=== PATIENT | male | born 1945 | race Caucasian/White ===

== ENCOUNTER 2016-06-07 11:58 | Day surgery (SDC) | payer MEDICARE, BC ==
[2016-06-04 18:02] VITALS: BMI 35.9
[~2016-06-07] VITALS: Ht 177.8 cm; Wt 115.7 kg
[2016-06-07] VITALS (14 sets, daily range): BP systolic 107–119; BP diastolic 43–58; PULSE 60–78; RESP 10–20; Ht 177.8 cm; Wt 115.7 kg
[2016-06-07] MEDS ORDERED: DEXTROSE 5%-0.45% NACL 1,000 ML IV SCH (14:30)
[2016-06-07] MEDS ORDERED: ALLO300T2 PO (15:26)
[2016-06-07] MEDS ORDERED: VENL75TA2 PO (15:26)
[2016-06-07] MEDS ORDERED: ASPI81TA3 PO (15:26)
[2016-06-07] MEDS ORDERED: ATOR10TA65 PO (15:26)
[2016-06-07] MEDS ORDERED: TAMS-14 PO (15:26)
[2016-06-07] MEDS ORDERED: ATEN-51 PO (15:26)
[2016-06-07] MEDS ORDERED: GLIP-95 PO (15:26)
[2016-06-07] MEDS ORDERED: PIOG45TA6 PO (15:26)
[2016-06-07] MEDS ORDERED: OLME20TA20 PO (15:26)
[2016-06-07] MEDS ORDERED: EXEN2PEN SQ (15:26)
[2016-06-07] MEDS ORDERED: ROPIVACAINE 0.5 % 30 ML VIAL ONE (16:49)
[2016-06-07] MEDS ORDERED: LIDOCAINE 2% (SDV) 5 ML INJ ONE (16:56)
[2016-06-07] MEDS ORDERED: MIDAZOLAM 1 MG/ML 2 ML INJ ONE (16:57)
[2016-06-07] MEDS ORDERED: PROPOFOL 20 ML ONE (16:57)
[2016-06-07] MEDS ORDERED: SOD CHLORIDE 0.9% 1,000 ML IV SCH (16:57)
--- NOTE | 2016-06-07 16:57 | HPN ---
Date/Time of Note Date/Time of Note DATE: 06/07/16 TIME: 16:57 Interval H&P Admission Note Pt. seen H&P reviewed: No system changes GERRI JC MD Jun 07, 2016 16:57
[2016-06-07] MEDS ORDERED: OXYCODONE/ACETAMINOPHEN (5/325) TAB PO PRN ×3 (17:00→19:00)
[2016-06-07] MEDS ORDERED: morphine 2 MG INJ IV PRN (17:00)
[2016-06-07] MEDS ORDERED: ONDANSETRON 4 MG INJ IV PRN ×2 (17:00→19:00)
[2016-06-07] MEDS ORDERED: FENTAnyl 50 MCG/ML VIAL ONE (17:19)
[2016-06-07] MEDS ORDERED: ONDANSETRON 4 MG INJ ONE (17:26)
[2016-06-07] MEDS ORDERED: FAMOTIDINE 20 MG INJ ONE (17:26)
[2016-06-07] MEDS ORDERED: METOCLOPRAMIDE 10 MG INJ ONE (17:26)
[2016-06-07] MEDS ORDERED: DEXTROSE 50% 50 ML SYRINGE ONE (17:28)
[2016-06-07] MEDS ORDERED: EPHEDrine SULFATE 50 MG/5 ML SYG ONE ×2 (17:58→18:25)
[2016-06-07] MEDS ORDERED: HYDROmorphONE 2 MG/ML SYG ONE (18:20)
[2016-06-07] MEDS ORDERED: FENTAnyl 50 MCG/ML VIAL IV PRN (19:00)
[2016-06-07] MEDS ORDERED: MEPERIDINE 25 MG INJ IV PRN (19:00)
[2016-06-07] MEDS ORDERED: DIPHENHYDRAMINE 50 MG INJ IV PRN (19:00)
[2016-06-07] MEDS ORDERED: HYDROmorphONE (0.2 MG/ML) 10ML SYG IV PRN (19:00)
[2016-06-07] MEDS ORDERED: PROCHLORPERAZINE 10 MG INJ IV PRN (19:00)
--- NOTE | 2016-06-08 05:54 | OPR ---
DATE OF OPERATION: 06/07/2016 PREOPERATIVE DIAGNOSES: Rule out tear of the medial meniscus, left knee. POSTOPERATIVE DIAGNOSES: 1. Complex tear of medial meniscus, left knee. 2. Tear of the lateral meniscus. 3. 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 4. 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 OPERATION PERFORMED: 1. Arthroscopy of the left knee. 2. Partial medial meniscectomy. 3. Partial lateral meniscectomy. 4. Chondroplasty patellofemoral joint. SURGEON: Gerri Zamora MD SEASONER HAND: Yeison Ellis ANESTHESIA: General. TOURNIQUET TIME: Zero. DESCRIPTION OF PROCEDURE: The patient was taken to the operating room, placed in the supine positio n. Satisfactory general anesthesia was administered, 2 grams Ancef intravenously. The left knee wa s prepped and draped in the usual manner. Exam under anesthesia revealed full range of motion, AP d rawer and Tae 1+, pivot shift was negative. No varus-valgus instability. The standard arthroscopic portals were used. Undersurface of patella had some grade II chondromalac ia, not too serious, grade II chondromalacia of the trochlear groove. Medial synovial shelf was nor mal. Lateral gutter had no loose bodies. Popliteus intact. Lateral compartment was entered. Ther e was degenerative tearing of the lateral meniscus from the mid zone to the posterior horn. Grade I I chondromalacia lateral compartment. Anterior and posterior cruciates were intact at origins and i nsertion. Medial compartment was entered. There was grade II to grade III chondromalacia of the me dial femoral condyle and medial tibial plateau, a small area of grade IV chondromalacia along the mi d zone. There was a complex tear of the medial meniscus from the mid zone to the posterior horn. P robe was inserted. The tear was palpated. Using curved and straight baskets, the tear was sauceriz ed from the mid zone to the posterior horn. We took back any horizontal cleavage tear fair am ount of meniscus in the posterior horn, left a nice rim, contoured it to the mid zone and posterior horn further. Shaver was used to smooth and contour the edges and remove all loose debris. Chondro plasty performed along the medial compartment. The arthroscope maneuvered posteromedially. All the debris from posteromedial corner was suctioned clear. The posterior and anterior cruciates were pa lpated and were intact. Lateral meniscus was saucerized and debrided with curved and straight baske ts and smoothed with a shaver until a stable lateral meniscal rim had been achieved. Chondroplasty performed along the lateral compartment and then along the patellofemoral compartment. The knee was irrigated clear. Wounds were closed with 4-0 black nylon and Steri-Strips, infiltrated with 0.5% r opivacaine. Compression dressing and an ice pack were applied and patient brought to the recovery r oom in stable condition. At end of procedure, the sponge and needle count was correct. The patient tolerated procedure well. Dictated By: GERRI HINTON/KWABENA Conf#: [id number] DID#: [id number]
== END 2016-06-07 20:15 | disposition home or self-care (01) ==
LOC: SDS 11:58
PROVIDERS: ATTEND Orthopaedic Surgery
DX: M23.252 Derangement of posterior horn of lateral meniscus due to old tear or injury, left knee (principal); M23.222 Derangement of posterior horn of medial meniscus due to old tear or injury, left knee; M22.42 Chondromalacia patellae, left knee; I10 Essential (primary) hypertension; E78.5 Hyperlipidemia, unspecified; I25.10 Atherosclerotic heart disease of native coronary artery without angina pectoris; E11.9 Type 2 diabetes mellitus without complications; Z95.0 Presence of cardiac pacemaker
CPT/HCPCS: 29880; 82962; J1170; J2250; J2405; J2765; J2795; J3010